=== PATIENT | male | born 1945 | race Two or more races ===

== ENCOUNTER 2020-02-16 08:15 | Outpatient (CLI) | payer OTHER | END 2020-02-16 08:26 | disposition home or self-care (01) | LOC: NUCLEAR 08:15 | PROVIDERS: ATTEND Urology | DX: C61 Malignant neoplasm of prostate (principal); I65.23 Occlusion and stenosis of bilateral carotid arteries; I20.8 Other forms of angina pectoris | CPT/HCPCS: 78452; 93017; A9500; J0153 ==